=== PATIENT | female | born 1930 | race Asian ===

== ENCOUNTER 2018-07-06 18:18 | Inpatient (IN) | payer OTHER, MEDICAID ==
[~2018-07-06] VITALS: Ht 160 cm; Wt 51.3 kg
[2018-07-06 18:27] VITALS: BP 125/53
--- NOTE | 2018-07-06 18:37 | NUR ---
PT TAKEN BY WHEELCHAIR TO ER BED 07
--- NOTE | 2018-07-06 18:40 | NUR ---
PATIENT PRESENTS TO ED WITH ALOC DESCRIBED BY FAMILY (DAUGHTER AND GRANDDAUGHTER). PT FAMILY STATES SHE HAS BEEN ACTING MORE ALTERED THAN NORMAL AND HAS NOT BEEN EATING OR SLEEPING. DENIES N/V/D; SKIN IS PINK/WARM/DRY; AAOX4 WITH EVEN AND STEADY GAIT; LUNGS CLEAR BL; HR EVEN AND REGULAR; PT DENIES ANY FEVER, CP, SOB, OR COUGH AT THIS TIME; PATIENT STATES PAIN OF 0/10 AT THIS TIME; VSS; PATIENT POSITIONED FOR COMFORT; HOB ELEVATED; BEDRAILS UP X2; BED DOWN. ER MD MADE AWARE OF PT STATUS.
--- NOTE | 2018-07-06 19:31 | NUR ---
PT UNABLE TO VOID AT THIS TIME
--- NOTE | 2018-07-06 20:02 | NUR ---
Dr. Arizmendi evaluating patient at bedside.
--- NOTE | 2018-07-06 20:06 | NUR ---
PT TO CT VIA GURCANDACE IN STABLE CONDITION.
--- NOTE | 2018-07-06 20:06 | NUR ---
Patient taken to CT scan via gurney by WorkFlow[employer].
--- NOTE | 2018-07-06 20:21 | NUR ---
Patient returned from CT scan. RN re-evaluating patient at bedside.
--- NOTE | 2018-07-06 20:40 | NUR ---
# 14 FR Urinary catheter inserted utilizing sterile technique. Immediate return of 200 ml YELLOW urine noted. Urine sample collected and sent to lab. Pt tolerated procedure WELL.
--- NOTE | 2018-07-06 20:53 | NUR ---
LABS DRAWN AT BEDSIDE
[2018-07-06 21:19] LABS: APPEARANCE,URINE CLEAR (CLEAR); BILIRUBIN,URINE NEGATIVE (NEGATIVE); BLOOD, URINE TRACE-I (NEGATIVE); COLOR,URINE YELLOW (YELLOW); LEUKOCYTE ESTERASE ,URINE NEGATIVE (NEGATIVE); NITRITE, URINE NEGATIVE (NEGATIVE); PH,URINE 7.5 (5.0-9.0); UGLUCOSE NEGATIVE (NEGATIVE)
[2018-07-06 21:21] LABS: BASOPHILS % (AUTO) 0.7 % (0.0-2.0); EOSINOPHILS # (AUTO) 0.1 K/uL (0-0.4); EOSINOPHILS % (AUTO) 1.6 % (0.0-4.0); HEMATOCRIT 37.1 % (36-48); HEMOGLOBIN 12.7 g/dL (12.0-16.0); LYMPHOCYTES # (AUTO) 1.6 K/uL (2.5-16.5); MEAN CORPUSCULAR HEMOGLOBIN 35 pg (27-31); MEAN CORPUSCULAR HGB CONC 34 g/dL (33-37); MEAN CORPUSCULAR VOLUME 101.5 fL (80-94); MONOCYTES # (AUTO) 0.5 K/uL (0.8-1.0); MONOCYTES % (AUTO) 9.4 % (1.7-9.3); NEUTROPHILS % (AUTO) 57.3 % (42.2-75.2); PLATELET COUNT (AUTO) 145 K/uL (140-450); RED BLOOD CELL COUNT(AUTO) 3.66 MIL/uL (4.20-5.40); RED CELL DISTRIBUTION WIDTH 12.8 % (11.6-13.7); WHITE BLOOD COUNT (AUTO) 5.2 K/uL (4.8-10.8)
[2018-07-06 21:36] LABS: ANION GAP 9.5 (8-16); CARBON DIOXIDE 28.2 mmol/L (21-32); CHLORIDE 104 mmol/L (98-107); CREATININE 1.4 mg/dL (0.6-1.3); GLUCOSE 99 mg/dL (74-106); POTASSIUM 3.7 mmol/L (3.5-5.1); SODIUM SERUM 138 mmol/L (136-145); UREA NITROGEN, BLOOD 33 mg/dL (7-18)
[2018-07-06 21:42] LABS: ALBUMIN 4.2 g/dL (3.4-5.0); ASPARTATE AMINOTRANSFERASE 19 U/L (15-37); TOTAL BILIRUBIN 0.4 mg/dL (0.0-1.0)
[2018-07-06 21:45] LABS: RBC,URINE 0-5 (RARE) /HPF (0-5); WBC,URINE 0-5 (RARE) /HPF (0-5)
[2018-07-06] MEDS ORDERED: NACL 0.9% 500 ML IV ONE (22:00)
--- NOTE | 2018-07-06 22:01 | NUR ---
DR FULLER MADE AWARE OF LAB RESULTS.
[2018-07-06] MEDS ORDERED: MEMA10TA PO (22:14)
[2018-07-06] MEDS ORDERED: CALC-53 PO (22:14)
[2018-07-06] MEDS ORDERED: SERT100T PO (22:14)
[2018-07-06] MEDS ORDERED: PANT40EC28 PO (22:14)
[2018-07-06] MEDS ORDERED: AMLO5TAB4 PO (22:14)
[2018-07-06] MEDS ORDERED: ASPI-1173 PO (22:14)
[2018-07-06] MEDS ORDERED: ICOS1SGL PO (22:14)
[2018-07-06] MEDS ORDERED: SIMV20TA1 PO (22:14)
[2018-07-06] MEDS ORDERED: DONE10TA10 PO (22:14)
[2018-07-06] MEDS ORDERED: ZOLPIDEM 5 MG TAB PO PRN (22:55)
[2018-07-06] MEDS ORDERED: MORPHINE SULFATE 2 MG/ML SYR IVP PRN (22:55)
[2018-07-06] MEDS ORDERED: DOCUSATE SODIUM 100 MG GELCAP PO PRN (22:55)
[2018-07-06] MEDS ORDERED: LORazepam 2 MG/ML VIAL IM/IVP PRN (22:55)
[2018-07-06] MEDS ORDERED: ONDANSETRON 4 MG/2 ML VIAL IM/IVP PRN (22:55)
[2018-07-06] MEDS ORDERED: ACETAMINOPHEN 325 MG TAB PO PRN (22:55)
[2018-07-06] MEDS ORDERED: HYDROcodone/APAP 5/325 MG 1 TAB TAB PO PRN (22:55)
--- NOTE | 2018-07-06 23:07 | NUR ---
Patient will be admitted to care of DR. ESCALANTE. Admited to [facility]. Will go to room 121B. Belongings list completed. Report to RAFAELA ISAAC.
[2018-07-06 23:39] LABS: PROTHROMBIN TIME 9.7 secs (10.8-13.4)
[2018-07-06] MEDS: NACL 0.9% 1,000 ML IV SCH (23:44)
[2018-07-06 23:52] LABS: MAGNESIUM 2.5 mg/dL (1.8-2.4)
[2018-07-06 23:53] LABS: CHOL/HDL RATIO 2.6 (1-4.5); FREE T4 (FREE THYROXINE) 0.97 ng/dL (0.76-1.46); THYROID STIMULATING HORMONE 2.84 uIU/mL (0.34-3.74)
[2018-07-07] VITALS: BP 152/49
--- NOTE | 2018-07-07 | NUR ---
VITAL SIGNS WITHIN NORMAL LIMITS. PT STABLE, NO SIGNS OF DISTRESS NOTED AT THIS TIME. BED IN LOWEST POSITION, BED ALARM ON. CALL LIGHT WITHIN REACH, WILL CONTINUE TO MONITOR.
[2018-07-07] MEDS ORDERED: ZOLPIDEM 5 MG TAB ONE (00:39)
--- NOTE | 2018-07-07 00:40 | NUR ---
ADMINISTERED AMBIEN RIGHT NOW PER DR KERN'S ORDER. PULP HOUSE SUPERVISOR JULIO HAD TO OVERRIDE PYXIS IN ORDER TO GET MEDICATION BECAUSE PT NOT IN SYSTEM, PYXIS IS HAVING ISSUES WITH NEW PT'S AND ORDERS. 10MG ZOLPIDEM NOT AVAILABLE IN ONE PILL SO WE TOOK OUT TWO 5MG ZOLPIDEM PILLS.
[2018-07-07] MEDS ORDERED: ZOLPIDEM 10 MG TAB PO SCH (01:00)
--- NOTE | 2018-07-07 02:40 | NUR ---
PT PULLED OUT IV AND DOES NOT WANT ANOTHER ONE BECAUSE IT HURTS A LOT.
[2018-07-07 04:00] VITALS: BP 123/39
[2018-07-07] MEDS ORDERED: PANTOPRAZOLE 40 MG TABEC PO ONE (06:06)
[2018-07-07] MEDS: PANTOPRAZOLE 40 MG TABEC PO SCH (06:15)
--- NOTE | 2018-07-07 06:17 | NUR ---
ADMINISTERED SCHEDULED MEDICATION, PT TOLERATED WELL.
--- NOTE | 2018-07-07 07:07 | NUR ---
PATIENT HAS BEEN SCREENED AND CATEGORIZED HIGH NUTRITION RISK. PATIENT WILL BE SEEN WITHIN 1-2 DAYS OF ADMISSION. 07/06/18-07/07/18 IZABEL TYLER MS, RDN
--- NOTE | 2018-07-07 07:37 | NUR ---
ENDORSED PT TO DAY SHIFT RN FOR CONTINUITY OF CARE. PT IN STABLE CONDITION.
--- NOTE | 2018-07-07 07:40 | NUR ---
RECEIVED PT FROM EARTH SCIENCE TECHNICAL OFFICER NURSERAFAELA, PT IS AWAKE AND LYING ON THE BED WITH NO PERIPHERAL LINE IN PLACE. SAFETY PRECAUTION ENFORCED AND BED IN LOW POSITION, YELLOW GOWN, YELLOW BAND, YELLOW SOCK AND YELLOW SIGN IN PLACE. NO SIGN OF DISTRESS NOTED AND WILL CONTINUE TO MONITOR PT.
[2018-07-07 08:00] VITALS: BP 136/46
--- NOTE | 2018-07-07 08:00 | NUR ---
PT IS OFF THE UNIT AND WAS TAKEN BY SHAE FROM RADIOLOGY [facility]IA [facility] TO DO A RIB X-RAY PROCEDURE TO THE PT. PT IS AWAKE AND NO SIGN OF DISTRESS NOTED.
--- NOTE | 2018-07-07 08:46 | NUR ---
PT IS BACK TO ROOM FROM RADIOLOGY FROM A RIB X-RAY PROCEDURE. NO SIGN OF DISTRESS NOTED. WILL CONTINUE TO MONITOR PT.
--- NOTE | 2018-07-07 08:52 | NUR ---
PT DID NOT FINISH HER BREAKFAST AND JUST TOOK THE ENSURE, PT WAS ENCOURAGED TO EAT BUT SHE REFUSED AND SAID THAT SHE DOES NOT WANT ANYMORE. WILL MONITOR PT.
[2018-07-07] MEDS ORDERED: METOPROLOL 25 MG TAB PO SCH (09:00)
[2018-07-07] MEDS ORDERED: MEMANTINE 10 MG TAB PO SCH ×2 (09:00→21:00)
[2018-07-07] MEDS: LISINOPRIL 5 MG TAB PO SCH (09:00)
[2018-07-07] MEDS ORDERED: SERTRALINE 50 MG TAB PO SCH (09:00)
[2018-07-07] MEDS: ASPIRIN 81 MG TAB.CHEW PO SCH (09:35)
[2018-07-07] MEDS: amLODIPine 5 MG TAB PO SCH (09:36)
[2018-07-07] MEDS: DONEPEZIL 10 MG TAB PO SCH (09:36)
--- NOTE | 2018-07-07 10:15 | NUR ---
07/07/18 RD INITIAL ASSESSMENT COMPLETED PLEASE REFER TO NUTRITION ASSESSMENT UNDER CARE ACTIVITY FOR ESTIMATED NUTRITIONAL NEEDS. RD RECOMMENDATIONS: 1. RECOMMEND D/C RENAL DIET 2. RECOMMEND CHANGING DIET TO REGULAR 3. RECOMMEND STARTING ENSURE MAX PROTEIN WITH ALL MEALS TID. (THIS WILL PROVIDE 450 KCAL, 45 GM PROTEIN.) 4. RDN WILL F/U 2-3 DAYS; HIGH RISK. IZABEL TYLER, , RDN
--- NOTE | 2018-07-07 11:50 | NUR ---
PERIPHERAL WAS PLACED TO THE PT, ON THE RT FA G.22 AND NS WAS STARTED AT 50ML/HR, INFUSING WELL AND PATENT AND INTACT. WILL CONTINUE TO MONITOR PT.
[2018-07-07 12:00] VITALS: BP 120/35
--- NOTE | 2018-07-07 12:14 | NUR ---
ECHOCARDIOGRAM IS BEING DONE TO THE PT NOW. CALLED DR. LANDAVERDE AND INFORMED MD OF PT'S BP RESULT OF 120/33, MAP AT 52 AND PULSE AT 69, RESPIRATION IS 18 AND O2 SATURATION IS 96% AT O2 2L NC. PT IS AWAKE AND RESTING ON THE BED WITH NO SIGN OF DISTRESS NOTED. WILL CONTINUE TO MONITOR PT.
--- NOTE | 2018-07-07 12:49 | NUR ---
LATOYA FROM LAB CALLED AND REPORTED THE PT'S TROPONIN LEVEL OF 0.073, ACKNOWLEDGED AND WILL INFORM .
--- NOTE | 2018-07-07 12:55 | NUR ---
INFORMED DR. LANDAVERDE OF PT'S TROPONIN LEVEL OF 0/073, DR. LANDAVERDE SAID THAT HE WILL PLACE AN ORDER.
[2018-07-07] MEDS ORDERED: HYDROcodone/APAP 5/325 MG 1 TAB TAB PO SCH (13:00)
[2018-07-07] MEDS ORDERED: KETOROLAC 15 MG/ML VIAL IVP PRN (13:25)
--- NOTE | 2018-07-07 14:19 | NUR ---
SPOKE TO DR. LANDAVERDE REGARDING THE PT'S NAMENDA WHICH THE FAMILY HANDED ON WHICH IS A 28MG DOSE THAT THE PT IS TAKING AT HOME, INFORMED MD ALSO THAT PHARMACY RECOMMENDED TO GIVE THE SAME DOSE THE PT IS TAKING AT HOME SO NOT TO CREATE CONFUSION, DR. LANDAVERDE SAID TO JUST KEEP THE NAMENDA HE ORDERED FOR 10MG BID FOR THE PT, ACKNOWLEDGED AND WILL FACILITATE ORDER OF MD.
--- NOTE | 2018-07-07 15:00 | NUR ---
Certified Phlebotomy Technician Notes: I faxed patient's medical information and MD order for Physical Therapy to [facility] . I spoke to Telma at admissions to confirm that Patients Clinical packet was received and she confirmed that faxed information was received and will be review.
[2018-07-07 16:00] VITALS: BP 115/45
[2018-07-07] MEDS: NACL 0.9% 1,000 ML IV SCH (16:29)
[2018-07-07] MEDS ORDERED: SIMVASTATIN 20 MG TAB PO SCH (17:00)
[2018-07-07] MEDS ORDERED: ZOLPIDEM 5 MG TAB PO SCH (17:00)
--- NOTE | 2018-07-07 17:30 | NUR ---
Bender Machine Operator Notes: I received a call from Yuliya james at [facility] Stating that they will be accepting patient when she is ready for discharge from [facility]. I Thanked her for the information and ended the call. MD. Denny was made aware.
[2018-07-07] MEDS: ISOSORBIDE MONONITRATE 30 MG TABER PO SCH (18:00)
--- NOTE | 2018-07-07 19:35 | NUR ---
ENDORSED PT TO LIFTER NURSESUZANNE FOR CONTINUITY OF CARE. PT IS STABLE AT THIS TIME
--- NOTE | 2018-07-07 19:40 | NUR ---
REPORT RECEIVED FROM AM NURSE AT BEDSIDE. PT IN STABLE CONDITION. AAOX4. INTRODUCED SELF TO PT AND FAMILY. BOARD UPDATED. IV SITE R FA 20G RUNNING NS@50ML/HR PATENT AND INTACT. SKIN WARM, DRY, AND INTACT WITH NO OPEN WOUNDS. NO COMPLAINTS OF SOB. NO COMPLAINTS OF PAIN. BED LOCKED IN LOW POSITION. CALL GUEVARA WITHIN REACH. SAFETY PRECAUTIONS IN PLACE.
[2018-07-07 20:00] VITALS: BP 131/45
[2018-07-07] MEDS: MEMANTINE 10 MG TAB PO SCH (21:04)
--- NOTE | 2018-07-07 21:04 | NUR ---
NAMENDA GIVEN PO. HEPARIN GIVEN SUBQ. PT TOLERATED WELL.
[2018-07-07] MEDS: ZOLPIDEM 10 MG TAB PO SCH (21:36)
--- NOTE | 2018-07-07 21:36 | NUR ---
AMBIEN GIVEN PO. PT TOLERATED WELL.
--- NOTE | 2018-07-07 23:45 | NUR ---
PT ATTEMPTED TO GET UP MULTIPLE TIMES. BED ALARM SET. NO S/S OF DISTRESS. WILL CONTINUE TO MONITOR.
[2018-07-08] VITALS: BP 143/45
--- NOTE | 2018-07-08 02:15 | NUR ---
PT SLEEPING COMFORTABLY IN BED. NO S/S OF DISTRESS NOTED. NO COMPLAINTS OF PAIN OR SOB. WILL CONTINUE TO MONITOR.
[2018-07-08 04:00] VITALS: BP 131/51
[2018-07-08] MEDS: PANTOPRAZOLE 40 MG TABEC PO SCH (05:44)
--- NOTE | 2018-07-08 05:44 | NUR ---
PROTONIX GIVEN PO. PT TOLERATED WELL.
[2018-07-08] MEDS: NACL 0.9% 1,000 ML IV SCH (05:51)
--- NOTE | 2018-07-08 07:20 | NUR ---
REPORT GIVEN TO AM NURSE AT BEDSIDE. PT IN STABLE CONDITION.
--- NOTE | 2018-07-08 07:25 | NUR ---
RECEIVED PT FROM MANAGER OF DEVELOPMENT NURSESUZANNE, PT ID AWAKE LYING ON THE BED, NO SOB, RESPIRATION EVEN, PT HAS AN IV LINE ON THE RIGHT FA G. 22 NS AT 50 ML/HR, INTACT, INFUSING, SIDE RAILS ARE UP, AND CALL LIGHT WITHIN REACH. NO SIGN OF DISTRESS NOTED AND WILL CONTINUE TO MONITOR PT.
[2018-07-08 08:00] VITALS: BP 127/45
[2018-07-08 08:08] LABS: T4 (THYROXINE) 8.3 ug/dL (4.5-12.0)
[2018-07-08 08:19] LABS: BASOPHILS % (AUTO) 0.5 % (0.0-2.0); EOSINOPHILS # (AUTO) 0.1 K/uL (0-0.4); EOSINOPHILS % (AUTO) 2.4 % (0.0-4.0); HEMATOCRIT 32.7 % (36-48); HEMOGLOBIN 11.2 g/dL (12.0-16.0); LYMPHOCYTES # (AUTO) 1.5 K/uL (2.5-16.5); LYMPHOCYTES % (AUTO) 36.4 % (20.5-51.1); MEAN CORPUSCULAR HEMOGLOBIN 35 pg (27-31); MEAN CORPUSCULAR HGB CONC 34 g/dL (33-37); MEAN CORPUSCULAR VOLUME 100.3 fL (80-94); MONOCYTES # (AUTO) 0.4 K/uL (0.8-1.0); NEUTROPHILS # (AUTO) 2.1 K/uL (1.8-7.7); NEUTROPHILS % (AUTO) 50.7 % (42.2-75.2); PLATELET COUNT (AUTO) 131 K/uL (140-450); RED BLOOD CELL COUNT(AUTO) 3.26 MIL/uL (4.20-5.40); RED CELL DISTRIBUTION WIDTH 12.6 % (11.6-13.7); WHITE BLOOD COUNT (AUTO) 4.2 K/uL (4.8-10.8)
[2018-07-08 08:33] LABS: CARBON DIOXIDE 27.6 mmol/L (21-32); CHLORIDE 107 mmol/L (98-107); CREATININE 1.1 mg/dL (0.6-1.3); GLUCOSE 99 mg/dL (74-106); POTASSIUM 3.6 mmol/L (3.5-5.1); SODIUM SERUM 140 mmol/L (136-145); UREA NITROGEN, BLOOD 28 mg/dL (7-18)
[2018-07-08 08:36] LABS: MAGNESIUM 2.3 mg/dL (1.8-2.4); PHOSPHORUS 3.4 mg/dL (2.5-4.9)
--- NOTE | 2018-07-08 09:07 | NUR ---
SPOKE TO DR. LANDAVERDE AND INFORMED MD OF THE PT'S BP RESULT OF 131/45, PULSE IS 57N AND MAP IS 73, DR. LANDAVERDE ORDERED TO GIVE THE NORVASC AND ZESTRIL TO PT. ACKNOWLEDGED AND WILL CARRY OUT ORDER.
[2018-07-08] MEDS: DONEPEZIL 10 MG TAB PO SCH (09:10)
[2018-07-08] MEDS: amLODIPine 5 MG TAB PO SCH (09:11)
[2018-07-08] MEDS: ASPIRIN 81 MG TAB.CHEW PO SCH (09:11)
[2018-07-08] MEDS: DULoxetine 30 MG CAPDR PO SCH (09:11)
[2018-07-08] MEDS: LISINOPRIL 5 MG TAB PO SCH (09:12)
[2018-07-08] MEDS: MEMANTINE 10 MG TAB PO SCH ×2 (09:16→20:32)
[2018-07-08 12:00] VITALS: BP 140/44
--- NOTE | 2018-07-08 12:30 | NUR ---
PT IS AWAKE AND VITAL SIGNS WERE TAKEN AND RESULTS ARE WITHIN NORMAL LIMITS, NO SIGN OF DISTRESS NOTES AND RESPIRATION EVEN. WILL MONITOR PT
--- NOTE | 2018-07-08 14:30 | NUR ---
PT IS SLEEPING AT THIS TIME.
[2018-07-08 16:00] VITALS: BP 117/44
--- NOTE | 2018-07-08 17:30 | NUR ---
PT IS AWAKE WITH DAUGHTER AND GRANDCHILD ON THE BEDSIDE, AND PT IS TALKING TO FAMILY. NO SIGN OF DISTRESS NOTED.
[2018-07-08] MEDS: ISOSORBIDE MONONITRATE 30 MG TABER PO SCH (18:00)
--- NOTE | 2018-07-08 18:38 | NUR ---
SPOKE TO DR. ELIZABETH AND INFORMED MD THAT IMDUR WAS HOLD PER PARAMETER AND ACKNOWLEDGED.
--- NOTE | 2018-07-08 18:45 | NUR ---
PT IS AWAKE AND AMBULATED TO THE BATHROOM WITH THE ASSISTANCE OF THE FAMILY, PT WAS SEEN HAVING ORAL CARE AT THIS TIME. NO SIGN OF DISTRESS NOTED. WILL CONTINUE TO MONITOR PT.
--- NOTE | 2018-07-08 19:10 | NUR ---
RECEIVED BEDSIDE REPORT FROM DAY SHIFT NURSE. PT SITTING AT SIDE OF BED FAMILY MEMBER AT BEDSIDE. DENIES ANY PAIN. NO SIGNS OF SOB PT IS CURRENTLY ON ROOM AIR. IV ON R FOREARM 22 G 40ML/HR INFUSING NS. REVIEWED PLAN OF CARE WITH PT. ALL SAFETY MEASURES IN PLACE. CALL LIGHT IS WITHIN REACH. WILL CONTINUE TO MONITOR.
[2018-07-08 20:00] VITALS: BP 116/43
--- NOTE | 2018-07-08 20:22 | NUR ---
DUE MEDICATIONS GIVEN. PT TOLERATED WELL. ALL SAFETY MEASURES IN PLACE. DAUGHTER AT BEDSIDE. CALL LIGHT IS WITHIN REACH. WILL CONTINUE TO MONITOR.
[2018-07-08] MEDS: ZOLPIDEM 10 MG TAB PO SCH (20:32)
[2018-07-09] VITALS: BP 135/46
--- NOTE | 2018-07-09 | NUR ---
VITAL SIGNS ARE WITHIN NORMAL LIMITS. PT DENIES ANY PAIN AT THIS TIME. CALL LIGHT WITHIN REACH. WILL CONTINUE TO MONITOR
--- NOTE | 2018-07-09 01:26 | NUR ---
ASSISTED PT TO RESTROOM. NO SIGNS OF DISTRESS NOTED. REORIENTED PT TO USE CALL LIGHT. ALL SAFETY MEASURES IN PLACE. BED ALARM ON AND BED ON LOWEST POSITION WITH 3 SIDE RAILS UP. WILL CONTINUE TO MONITOR.
--- NOTE | 2018-07-09 03:16 | NUR ---
PT SLEEPING IN BED. NO SIGNS OF DISTRESS NOTED AT THIS TIME.
[2018-07-09 04:00] VITALS: BP 132/46
[2018-07-09] MEDS: NACL 0.9% 1,000 ML IV SCH (04:04)
[2018-07-09] MEDS: PANTOPRAZOLE 40 MG TABEC PO SCH (05:43)
--- NOTE | 2018-07-09 05:43 | NUR ---
DUE MEDICATION GIVEN PT TOLERATED WELL. ALL SAFETY MEASURES IN PLACE. CALL LIGHT WITHIN REACH. WILL CONTINUE TO MONITOR.
--- NOTE | 2018-07-09 07:20 | NUR ---
PT REPORT RECEIVED FROM TRANSPORTATION DESIGN ENGINEER NURSE AT BEDSIDE. PT IS ALERT AND AWAKE, NO S/S OF DISTRESS NOTED AT THIS TIME. PT IS CURRENTLY ON ROOM AIR. PT HAS A R FOREARM IV, 22 GAUGE, RUNNING NS AT 40 ML/HR. IV IS PATENT AND INTACT. CALL LIGHT WITHIN REACH, BED IN LOW POSITION. WILL CONTINUE TO MONITOR.
--- NOTE | 2018-07-09 07:21 | NUR ---
ENDORSED PT TO DAY SHIFT NURSE. PT IN STABLE CONDITION. SAFETY MEASURES IN PLACE.
[2018-07-09 07:48] LABS: BASOPHILS % (AUTO) 0.9 % (0.0-2.0); EOSINOPHILS # (AUTO) 0.2 K/uL (0-0.4); HEMATOCRIT 31.8 % (36-48); LYMPHOCYTES # (AUTO) 1.5 K/uL (2.5-16.5); LYMPHOCYTES % (AUTO) 37.2 % (20.5-51.1); MEAN CORPUSCULAR HEMOGLOBIN 35 pg (27-31); MEAN CORPUSCULAR HGB CONC 35 g/dL (33-37); MEAN CORPUSCULAR VOLUME 100.9 fL (80-94); MONOCYTES # (AUTO) 0.4 K/uL (0.8-1.0); NEUTROPHILS # (AUTO) 1.9 K/uL (1.8-7.7); NEUTROPHILS % (AUTO) 47.9 % (42.2-75.2); PLATELET COUNT (AUTO) 127 K/uL (140-450); RED BLOOD CELL COUNT(AUTO) 3.15 MIL/uL (4.20-5.40); RED CELL DISTRIBUTION WIDTH 12.6 % (11.6-13.7)
[2018-07-09 08:00] VITALS: BP 111/42
[2018-07-09 08:36] LABS: ANION GAP 10.2 (8-16); CARBON DIOXIDE 25.5 mmol/L (21-32); CHLORIDE 111 mmol/L (98-107); CREATININE 1.1 mg/dL (0.6-1.3); GLUCOSE 96 mg/dL (74-106); POTASSIUM 3.7 mmol/L (3.5-5.1); SODIUM SERUM 143 mmol/L (136-145); UREA NITROGEN, BLOOD 23 mg/dL (7-18)
[2018-07-09] MEDS ORDERED: LISI-424 PO (08:41)
[2018-07-09] MEDS ORDERED: ISOS30TE35 PO (08:41)
[2018-07-09] MEDS ORDERED: MEMA10TA PO (08:41)
[2018-07-09] MEDS: DONEPEZIL 10 MG TAB PO SCH (09:40)
[2018-07-09] MEDS: DULoxetine 30 MG CAPDR PO SCH (09:40)
[2018-07-09] MEDS: amLODIPine 5 MG TAB PO SCH (09:41)
[2018-07-09] MEDS: LISINOPRIL 5 MG TAB PO SCH (09:41)
[2018-07-09] MEDS: MEMANTINE 10 MG TAB PO SCH (09:42)
--- NOTE | 2018-07-09 10:30 | NUR ---
PT DOING PHYSICAL THERAPY AT THIS TIME. NO S/S OF DISTRESS NOTED. DAUGHTER PRESENT.
--- NOTE | 2018-07-09 11:06 | NUR ---
Channel Process Plant Operator Note: Fransico Hollis from [facility] , patient may go to room 28B after 3pm today, accepting physician is , nurse outreach case manager Margaret and Dr. Hansen made aware.
[2018-07-09 12:00] VITALS: BP 110/45
--- NOTE | 2018-07-09 12:08 | NUR ---
SPOKE TO THE DAUGHTER HANSEL, SHE SAID SHE WILL SUPERVISOR GREEN END DEPARTMENT HER MOM AFTER 3PM.
--- NOTE | 2018-07-09 12:08 | NUR ---
SPOKE WITH SCOOTER ISAACFINANCIAL ANALYST INTERN NURSE. SHE IS AWARE OF PATIENT TO GO TO SNF, [facility]. SHE SAID THE DAUGHTER, HANSEL WILL PROVIDE TRANSPORTATION TO [facility].
[2018-07-09] MEDS ORDERED: PNEUMOCOCCAL VACCINE 23 MCG/0.5 ML VIAL IMVAC SCH (12:30)
--- NOTE | 2018-07-09 15:40 | NUR ---
PT DISCHARGED TO [facility]. PT LEFT IN STABLE CONDITION, ACCOMPANIED BY HER DAUGHTER. IV SITE DC'D, WRIST BANDS REMOVED. PT RECEIVED THE PNEUMO VACCINE UPON DISCHARGE.
== END 2018-07-09 15:30 | DRG 280 ==
LOC: MED 18:18 → MTU 22:18
PROVIDERS: ADMIT General Practice; ATTEND General Practice
PROC: 3E0234Z Introduction of Serum, Toxoid and Vaccine into Muscle, Percutaneous Approach (ICD-10-PCS; principal; 2018-07-09)
DX: I21.A1 Myocardial infarction type 2 (principal); G93.41 Metabolic encephalopathy; N17.0 Acute kidney failure with tubular necrosis; E43 Unspecified severe protein-calorie malnutrition; Q25.46 Tortuous aortic arch; E86.0 Dehydration; I24.9 Acute ischemic heart disease, unspecified; G30.9 Alzheimer's disease, unspecified; K21.9 Gastro-esophageal reflux disease without esophagitis; F02.80 Dementia in other diseases classified elsewhere, unspecified severity, without behavioral disturbance, psychotic disturbance, mood disturbance, and anxiety; E83.41 Hypermagnesemia; D69.6 Thrombocytopenia, unspecified; G47.00 Insomnia, unspecified; R62.7 Adult failure to thrive; F32.9 Major depressive disorder, single episode, unspecified; I08.1 Rheumatic disorders of both mitral and tricuspid valves; M41.84 Other forms of scoliosis, thoracic region; Z23 Encounter for immunization
CPT/HCPCS: 36415; 70450; 71045; 71100; 80048; 80053; 81001; 82140; 82150; 82550; 83036; 83690; 83735; 83880; 84100; 84134; 84436; 84439; 84443; 84484; 85025; 85610; 85730; 87081; 90732; 93005; 97110; 97116; 97530; 99285; C1758; J1644; J7030

== ENCOUNTER 2018-10-16 16:04 | Emergency (ER) | payer OTHER, MEDICAID ==
[~2018-10-16] VITALS: Ht 160 cm; Wt 44.5 kg
[~2018-10-16 16:04] MED LIST: AMLO5TAB6 PO; ASPI-1173 PO; CALC-53 PO; DONE10TA10 PO; ICOS1SGL PO; ISOS30TE68 PO; LISI-424 PO; MEMA10TA PO; PANT40EC28 PO; SERT100T PO; SIMV20TA1 PO
[2018-10-16 16:09] VITALS: BP 126/75
--- NOTE | 2018-10-16 16:25 | NUR ---
PT TO ER BED 2
--- NOTE | 2018-10-16 16:45 | NUR ---
bib DAUGHTER with c/o allergic reaction x 1400 today. Unsure what is the cause. Family denies any allergies. REDNESS & SWELLIN TO PERIORBITAL AREA BOTH EYES . Patient denies any sob or difficultly breathing. Clear speech with full sentences. hx--dementia, hypertension, hyperlipidemia rx--quetiapine, zolpidem tartrate, simvastatin, pantoprazole, olopatadine hcl drops, amlopidine besylate, memantine hcl, mirtazapine
[2018-10-16] MEDS ORDERED: FAMOTIDINE 20 MG TAB PO ONE (16:55)
[2018-10-16] MEDS ORDERED: LORATADINE 10 MG TAB PO ONE (16:55)
[2018-10-16 17:06] VITALS: BP 134/52
--- NOTE | 2018-10-16 17:06 | NUR ---
Note nunuone in EDM - 10/16/18 at 1706 by MED1 Patient discharged with v/s stable. Written and verbal after care instructions given and explained. Patient alert, oriented and verbalized understanding of instructions. Wheel Chair Assisted with to car. All questions addressed prior to discharge. ID band removed. Patient advised to follow up with PMD. Rx of PEPCID, EPIPEN & CLARITIN given. Patient educated on indication of medication including possible reaction and side effects. Opportunity to ask questions provided and answered.
== END 2018-10-16 17:06 | disposition home or self-care (01) ==
LOC: MED 16:04
DX: T78.40XA Allergy, unspecified, initial encounter (principal); F03.90 Unspecified dementia, unspecified severity, without behavioral disturbance, psychotic disturbance, mood disturbance, and anxiety; I10 Essential (primary) hypertension; Z79.82 Long term (current) use of aspirin; Z79.899 Other long term (current) drug therapy; X58.XXXA Exposure to other specified factors, initial encounter
CPT/HCPCS: 99283

== ENCOUNTER 2019-01-12 12:27 | Inpatient (IN) | payer OTHER, MEDICAID ==
[~2019-01-12] VITALS: Ht 160 cm; Wt 50.8 kg
[2019-01-12 12:27] VITALS: BP 156/48
--- NOTE | 2019-01-12 12:40 | NUR ---
PT BIB FAMILY C/O MEC FALL 2 DAYS AGO HIT LT SIDE OF HEAD, REPORTS ALOC STARTING TODAY, HAND ATMOSPHERIC DRIER TENDER WEAK/UNEQUAL, UNSTEADY GAIT, PUPILS PINPOINT BUT REACTIVE. MEDHX:DEMENTIA, HIGH CHOL, HTN RX:PT/FAMILY CAN NOT RECALL HOME MEDS/DOSE AT THIS TIME
--- NOTE | 2019-01-12 12:41 | NUR ---
Called code brain.
[2019-01-12] MEDS ORDERED: ONDANSETRON 4 MG/2 ML VIAL IVP ONE (12:45)
[2019-01-12] MEDS ORDERED: HYDROcodone/APAP 5/325 MG 1 TAB TAB PO PRN (14:10)
[2019-01-12] MEDS ORDERED: ONDANSETRON 4 MG/2 ML VIAL IM/IVP PRN (14:10)
[2019-01-12] MEDS ORDERED: MORPHINE SULFATE 2 MG/ML SYR IVP PRN (14:10)
[2019-01-12] MEDS ORDERED: DOCUSATE SODIUM 100 MG GELCAP PO PRN (14:10)
[2019-01-12] MEDS ORDERED: ACETAMINOPHEN 325 MG TAB PO PRN (14:10)
[2019-01-12 14:21] LABS: BASOPHILS % (AUTO) 0.2 % (0.0-2.0); EOSINOPHILS # (AUTO) 0.1 K/uL (0-0.4); EOSINOPHILS % (AUTO) 1.6 % (0.0-4.0); HEMATOCRIT 34.8 % (36-48); HEMOGLOBIN 11.9 g/dL (12.0-16.0); LYMPHOCYTES # (AUTO) 1.5 K/uL (2.5-16.5); LYMPHOCYTES % (AUTO) 20.9 % (20.5-51.1); MEAN CORPUSCULAR HEMOGLOBIN 35 pg (27-31); MEAN CORPUSCULAR HGB CONC 34 g/dL (33-37); MEAN CORPUSCULAR VOLUME 101.9 fL (80-94); MONOCYTES # (AUTO) 0.7 K/uL (0.8-1.0); MONOCYTES % (AUTO) 9.8 % (1.7-9.3); NEUTROPHILS # (AUTO) 4.7 K/uL (1.8-7.7); NEUTROPHILS % (AUTO) 67.5 % (42.2-75.2); PLATELET COUNT (AUTO) 136 K/uL (140-450); RED BLOOD CELL COUNT(AUTO) 3.41 MIL/uL (4.20-5.40); RED CELL DISTRIBUTION WIDTH 13.1 % (11.6-13.7)
[2019-01-12 14:30] LABS: ANION GAP 12.6 (8-16); CARBON DIOXIDE 26.6 mmol/L (21-32); CHLORIDE 105 mmol/L (98-107); CREATININE 1.1 mg/dL (0.6-1.3); GLUCOSE 103 mg/dL (74-106); POTASSIUM 4.2 mmol/L (3.5-5.1); SODIUM SERUM 140 mmol/L (136-145); UREA NITROGEN, BLOOD 25 mg/dL (7-18)
[2019-01-12 14:37] LABS: ALBUMIN 3.5 g/dL (3.4-5.0); ASPARTATE AMINOTRANSFERASE 21 U/L (15-37); LIPASE 298 U/L (73-393); TOTAL BILIRUBIN 0.3 mg/dL (0.0-1.0)
[2019-01-12 14:39] LABS: PROTHROMBIN TIME 9.6 secs (10.8-13.4)
[2019-01-12] MEDS ORDERED: MEDICATION REC. PHARMACY CONS. 1 EA MISC MC PRN (15:05)
[2019-01-12 15:06] LABS: AMYLASE 91 U/L (25-115)
--- NOTE | 2019-01-12 15:20 | NUR ---
RECEIVED BEDSIDE REPORT FROM ER NURSE AUNDREA. PT STABLE, AWAKE, AND ALERT AND ORIENTED X2. NO SIGNS OF DISTRESS NOTED. NO REDNESS, SWELLING, OR INFLAMMATION NOTED ON IV SITE. FAMILY AT THE BEDSIDE. BED IN LOWEST POSITION, BED ALARM ON. SAFETY MEASURES IN PLACE. PLAN OF CARE REVIEWED.
--- NOTE | 2019-01-12 15:20 | NUR ---
Admited to TELE VIA [facility]/ [facility]. Will go to room 107A. Belongings list completed. Report to PER ELIZABETH.
[2019-01-12 15:37] LABS: MAGNESIUM 2.3 mg/dL (1.8-2.4); PHOSPHORUS 3.5 mg/dL (2.5-4.9); THYROID STIMULATING HORMONE 1.7 uIU/mL (0.34-3.74)
[2019-01-12 16:00] VITALS: BP 149/49
[2019-01-12] MEDS: NACL 0.9% 1,000 ML IV SCH (16:09)
[2019-01-12 16:17] LABS: APPEARANCE,URINE CLEAR (CLEAR); BILIRUBIN,URINE NEGATIVE (NEGATIVE); BLOOD, URINE NEGATIVE (NEGATIVE); COLOR,URINE YELLOW (YELLOW); LEUKOCYTE ESTERASE ,URINE NEGATIVE (NEGATIVE); NITRITE, URINE NEGATIVE (NEGATIVE); UGLUCOSE NEGATIVE (NEGATIVE)
[2019-01-12] MEDS ORDERED: ZOLP10TA1 PO (16:26)
[2019-01-12] MEDS ORDERED: NITROGLYCERIN 0.4 MG TAB SL ONE (16:30)
--- NOTE | 2019-01-12 17:43 | NUR ---
FAMILY AT THE BEDSIDE. NO OTHER NEEDS AT THIS TIME.
--- NOTE | 2019-01-12 17:55 | NUR ---
RECEIVED CALL FROM PT'S GRANDSON JOSÉ REGARDING HOME MEDS. MED RECON UPDATED, MADE DR GAMBOA AWARE.
[2019-01-12 18:00] VITALS: BP 115/40
--- NOTE | 2019-01-12 18:00 | NUR ---
ORTHOSTATIC TAKEN PER MD ORDER.
[2019-01-12 18:05] VITALS: BP 103/34
[2019-01-12 18:10] VITALS: BP 111/38
[2019-01-12] MEDS ORDERED: COROS OP (19:13)
[2019-01-12] MEDS ORDERED: HYDR-3298 PO (19:13)
[2019-01-12] MEDS ORDERED: MEL10 PO (19:13)
--- NOTE | 2019-01-12 19:15 | NUR ---
ENDORSED PT TO PONCHO REY FOR CONTINUITY OF CARE. PT STABLE, FAMILY AT THE BEDSIDE.
--- NOTE | 2019-01-12 19:16 | NUR ---
RECEIVED REPORT FROM AM NURSE. PATIENT LYING DOWN IN BED COMFORTABLY. FAMILY MEMBERS AT BEDSIDE FOR TRANSLATION. NO DISTRESS NOTED. RESPIRATIONS EVEN, UNLABORED, ON ROOM AIR. DENIES ANY PAIN, DENIES CHEST PAIN. AAOX4, CALM, COOPERATIVE, SKIN COLOR APPROPRIATE TO ETHNICITY, WARM TO TOUCH. SKIN INTACT. LEFT SMALL LEFT SIDE CHEST BRUISE S/P FALL. IV SITE INTACT, PATENT, AND INFUSING IVF PER MD ORDERS. ABDOMEN SOFT, NON-DISTENDED. REVIEWED PLAN OF CARE WITH PATIENT. PATIENT VERBALIZED UNDERSTANDING. SAFETY MEASURES IN PLACE, CALL LIGHT WITHIN REACH. WILL CONTINUE TO MONITOR.
[2019-01-12 20:00] VITALS: BP 125/43
[2019-01-12] MEDS ORDERED: NITROGLYCERIN 0.4 MG TAB SL SCH (20:00)
[2019-01-12] MEDS: MEMANTINE 10 MG TAB PO SCH (20:34)
[2019-01-12] MEDS: MELATONIN 3 MG TAB PO PRN (20:34)
--- NOTE | 2019-01-12 20:44 | NUR ---
PATIENT WANTS TO SLEEP, REQUESTS SLEEP MEDICATION. MELATONIN GIVEN AND OTHER SCHEDULED MEDICATIONS DUE AT THIS TIME GIVEN. NO DISTRESS NOTED. DENIES ANY CHEST PAIN. NITROGLYCERIN SUBLINGUAL NOT GIVEN AT THIS TIME. SAFETY MEASURES IN PLACE, CALL LIGHT WITHIN REACH. WILL CONTINUE TO MONITOR.
--- NOTE | 2019-01-12 22:25 | NUR ---
PATIENT BACK FROM CT SCAN. NO DISTRESS NOTED. WILL CONTINUE TO MONITOR.
[2019-01-13] VITALS: BP 121/42
[2019-01-13] MEDS ORDERED: traZODone 50 MG TAB PO SCH (01:00)
--- NOTE | 2019-01-13 01:10 | NUR ---
PATIENT COMPLAINS OF INSOMNIA, NOTIFIED MD. NEW ORDER OF TRAZODONE GIVEN PER MD ORDERS. WILL CONTINUE TO MONITOR.
--- NOTE | 2019-01-13 02:50 | NUR ---
PATIENT LYING DOWN IN BED SLEEPING, AROUSBLE BY VOICE. CONDITION UNCHANGED. WILL CONTINUE TO MONITOR.
--- NOTE | 2019-01-13 03:30 | NUR ---
ASSISTED PATIENT TO AMBULATE TO BATHROOM AND BACK TO BED. WILL CONTINUE TO MONITOR.
[2019-01-13 04:00] VITALS: BP 110/42
--- NOTE | 2019-01-13 04:30 | NUR ---
PATIENT LYING DOWN IN BED SLEEPING, AROUSABLE BY VOICE. CONDITION UNCHANGED. WILL CONTINUE TO MONITOR.
[2019-01-13] MEDS: NACL 0.9% 1,000 ML IV SCH ×2 (05:59→23:30)
[2019-01-13] MEDS: PANTOPRAZOLE 40 MG TABEC PO SCH (05:59)
--- NOTE | 2019-01-13 06:00 | NUR ---
PATIENT LYING DOWN IN BED SLEEPING, AROUSABLE BY VOICE. NO DISTRESS NOTED. SCHEDULED MEDICATIONS DUE GIVEN. WILL CONTINUE TO MONITOR.
--- NOTE | 2019-01-13 07:23 | NUR ---
GAVE REPORT TO AM NURSE FOR CONTINUITY FOR CARE. PATIENT IN STABLE CONDITION.
[2019-01-13 08:00] VITALS: BP 130/59
--- NOTE | 2019-01-13 08:00 | NUR ---
RECEIVED REPORT FROM BOX OFFICE AGENT CANDIDO ISAAC FOR CONTINUITY OF CARE. PATIENT AWAKE A/OX3 WITH PERIODS OF CONFUSION. SERBIAN SPEAKING BUT ABLE TO MAKE NEEDS KNOWN. IV SITE RIGHT HAND GAUGE 22 INTACT AND PATENT. IVF INFUSING WELL. PLAN OF CARE DISCUSSED WITH THE PATIENT SAFETY ENFORCED ,VITALS STABLE WILL CONTINUE TO MONITOR.
[2019-01-13 08:22] LABS: T4 (THYROXINE) 7.5 ug/dL (4.5-12.0)
[2019-01-13 08:40] LABS: MAGNESIUM 2.1 mg/dL (1.8-2.4); PHOSPHORUS 3.2 mg/dL (2.5-4.9)
[2019-01-13 08:45] LABS: ANION GAP 12.5 (8-16); CARBON DIOXIDE 25.5 mmol/L (21-32); CHLORIDE 108 mmol/L (98-107); CREATININE 1.1 mg/dL (0.6-1.3); GLUCOSE 142 mg/dL (74-106); SODIUM SERUM 142 mmol/L (136-145); UREA NITROGEN, BLOOD 19 mg/dL (7-18)
[2019-01-13 08:47] LABS: CHOL/HDL RATIO 3.1 (1-4.5)
[2019-01-13 08:53] LABS: BASOPHILS % (AUTO) 0.4 % (0.0-2.0); EOSINOPHILS # (AUTO) 0.1 K/uL (0-0.4); EOSINOPHILS % (AUTO) 2.7 % (0.0-4.0); HEMATOCRIT 31.5 % (36-48); LYMPHOCYTES # (AUTO) 1.2 K/uL (2.5-16.5); MEAN CORPUSCULAR HEMOGLOBIN 35 pg (27-31); MEAN CORPUSCULAR HGB CONC 35 g/dL (33-37); MEAN CORPUSCULAR VOLUME 101.8 fL (80-94); MONOCYTES # (AUTO) 0.5 K/uL (0.8-1.0); MONOCYTES % (AUTO) 9.4 % (1.7-9.3); NEUTROPHILS # (AUTO) 3.1 K/uL (1.8-7.7); NEUTROPHILS % (AUTO) 63.5 % (42.2-75.2); PLATELET COUNT (AUTO) 122 K/uL (140-450); RED BLOOD CELL COUNT(AUTO) 3.09 MIL/uL (4.20-5.40); RED CELL DISTRIBUTION WIDTH 12.9 % (11.6-13.7); WHITE BLOOD COUNT (AUTO) 4.9 K/uL (4.8-10.8)
[2019-01-13] MEDS: SERTRALINE 50 MG TAB PO SCH (09:57)
[2019-01-13] MEDS: MEMANTINE 10 MG TAB PO SCH ×2 (09:57→20:24)
[2019-01-13] MEDS: DONEPEZIL 10 MG TAB PO SCH (09:57)
--- NOTE | 2019-01-13 10:00 | NUR ---
DUE MEDS GIVEN TOLERATED WELL ASSIST PATIENT TO GO TO BATHROOM AND WITH MORNING CARE ,SAFETY ENFORCED VERBALIZED UNDERSTANDING
[2019-01-13 13:40] VITALS: BP 135/42
--- NOTE | 2019-01-13 13:40 | NUR ---
RECEIVED REPORT FROM THE PARACHUTE FOLDER NURSE. PT IS AWAKE AND ORIENTED X3, WITH SOME FORGETFULNESS. DAUGHTER AT BEDSIDE. PT IS PASHTO SPEAKING. V/S WITHIN NORMAL RANGE. DENIES PAIN. IV ON L HAND 22G NS AT 60ML/HR. PT IS AMBULATORY WITH ASSIST. BIT UNSTEADY ON FEET. S/P FALL AT HOME. C/O SOME DISCOMFORT ON L RIB. XRAY STILL PENDING. SORENESS ON L SIDE OF THE HEAD BEHIND EAR. CT HEAD NEGATIVE. NO OTHER COMPLAINTS. CARDIOLOGY CONSULT PENDING. WOULD LIKE TO BE D/C SOON, WOULD LIKE TO GO HOME. WILL CONTINUE TO MONITOR PT.
[2019-01-13 16:00] VITALS: BP 114/36
--- NOTE | 2019-01-13 16:30 | NUR ---
DR MITCHELL HERE TO SEE PT. ORDERED ECHO. PT HAS A MURMUR.
--- NOTE | 2019-01-13 17:00 | NUR ---
MOVED PT TO [facility]. PT ALL SETTLED IN. WILL CONTINUE TO MONITOR PT.
--- NOTE | 2019-01-13 19:35 | NUR ---
ENDORSED PT TO THE DEVELOPMENT TECHNOLOGIST NURSE. PT IS IN STABLE CONDITION
--- NOTE | 2019-01-13 19:36 | NUR ---
RECEIVED REPORT FROM DAY SHIFT NURSE SAMANTHA-RN AT BEDSIDE. PT RESTING IN BED WITH FAMILY AT BEDSIDE. PT AOX3-FORGETFUL, SPEAKS CZECH, ON ROOM AIR WITH RIGHT HAND #22G RUNNING NS @60ML/HR. DISCUSSED PLAN OF CARE AND PT VERBALIZED UNDERSTANDING. NO S/S OF RESPIRATORY DISTRESS OR DISCOMFORT NOTED AT THIS TIME. BED IN LOWEST POSITION, BED BREAKS ON, BOTH SIDE RAILS UP AND FALL PRECAUTIONS IN PLACE. BEDSIDE TABLE AND CALL LIGHT ARE WITHIN REACH. WILL CONTINUE TO MONITOR.
[2019-01-13 20:00] VITALS: BP 110/35
--- NOTE | 2019-01-13 20:00 | NUR ---
VITAL SIGNS TAKEN AND TOLERATED WELL. NO S/S OF RESPIRATORY DISTRESS OR DISCOMFORT NOTED AT THIS TIME. WILL CONTINUE TO MONITOR.
[2019-01-13] MEDS: MELATONIN 3 MG TAB PO PRN (20:24)
--- NOTE | 2019-01-13 20:24 | NUR ---
SCHEDULED MEDICATION NAMENDA GIVEN AND TOLERATED WELL. SLEEPING AID REQUESTED AND MELATONIN GIVEN- PT TOLERATED WELL. NO S/S OF RESPIRATORY DISTRESS OR DISCOMFORT NOTED AT THIS TIME. WILL CONTINUE TO MONITOR.
--- NOTE | 2019-01-13 21:46 | NUR ---
SCHEDULED MEDICATION DULCOLAX GIVEN AND TOLERATED WELL. NO S/S OF RESPIRATORY DISTRESS OR DISCOMFORT NOTED AT THIS TIME. WILL CONTINUE TO MONITOR.
[2019-01-13] MEDS ORDERED: BISACODYL 5 MG TABEC PO SCH (22:00)
[2019-01-14] VITALS: BP 139/46
--- NOTE | 2019-01-14 | NUR ---
VITAL SIGNS TAKEN AND TOLERATED WELL. NO S/S OF RESPIRATORY DISTRESS OR DISCOMFORT NOTED AT THIS TIME. WILL CONTINUE TO MONITOR.
--- NOTE | 2019-01-14 02:00 | NUR ---
PT SLEEPING IN BED. NO S/S OF RESPIRATORY DISTRESS OR DISCOMFORT NOTED AT THIS TIME. WILL CONTINUE TO MONITOR.
[2019-01-14 04:00] VITALS: BP 153/31
--- NOTE | 2019-01-14 04:00 | NUR ---
VITAL SIGNS TAKEN AND TOLERATED WELL. NO S/S OF RESPIRATORY DISTRESS OR DISCOMFORT NOTED AT THIS TIME. WILL CONTINUE TO MONITOR.
[2019-01-14] MEDS: NACL 0.9% 1,000 ML IV SCH ×2 (04:16→21:50)
[2019-01-14] MEDS: PANTOPRAZOLE 40 MG TABEC PO SCH (06:06)
--- NOTE | 2019-01-14 06:06 | NUR ---
SCHEDULED MEDICATION PROTONIX GIVEN AND TOLERATED WELL. NO S/S OF RESPIRATORY DISTRESS OR DISCOMFORT NOTED AT THIS TIME. WILL CONTINUE TO MONITOR.
--- NOTE | 2019-01-14 07:24 | NUR ---
RECEIVED REPORT FROM LOCOMOTIVE INSPECTOR NURSE RUPAL AT BEDSIDE. PT RESTING IN BED WITH FAMILY AT BEDSIDE. PT AOX3-FORGETFUL, SPEAKS LITHUANIAN, ON ROOM AIR WITH RIGHT HAND #22G RUNNING NS @60ML/HR. NO S/S OF RESPIRATORY DISTRESS OR DISCOMFORT NOTED AT THIS TIME. BED IN LOWEST POSITION, BED BREAKS ON, BOTH SIDE RAILS UP AND FALL PRECAUTIONS IN PLACE. BEDSIDE TABLE AND CALL LIGHT ARE WITHIN REACH. WILL CONTINUE TO MONITOR.
--- NOTE | 2019-01-14 07:24 | NUR ---
ENDORSED PT CARE TO DAY SHIFT NURSE WOLF FOR CONTINUITY OF CARE.
[2019-01-14 08:00] VITALS: BP 125/56
[2019-01-14 08:00] LABS: BASOPHILS % (AUTO) 0.4 % (0.0-2.0); EOSINOPHILS # (AUTO) 0.2 K/uL (0-0.4); EOSINOPHILS % (AUTO) 3.2 % (0.0-4.0); HEMATOCRIT 31.3 % (36-48); HEMOGLOBIN 10.9 g/dL (12.0-16.0); LYMPHOCYTES # (AUTO) 1.2 K/uL (2.5-16.5); LYMPHOCYTES % (AUTO) 24.9 % (20.5-51.1); MEAN CORPUSCULAR HEMOGLOBIN 35 pg (27-31); MEAN CORPUSCULAR HGB CONC 35 g/dL (33-37); MEAN CORPUSCULAR VOLUME 101.1 fL (80-94); MONOCYTES # (AUTO) 0.4 K/uL (0.8-1.0); MONOCYTES % (AUTO) 8.3 % (1.7-9.3); NEUTROPHILS # (AUTO) 3.1 K/uL (1.8-7.7); NEUTROPHILS % (AUTO) 63.2 % (42.2-75.2); PLATELET COUNT (AUTO) 119 K/uL (140-450); RED BLOOD CELL COUNT(AUTO) 3.09 MIL/uL (4.20-5.40); WHITE BLOOD COUNT (AUTO) 4.9 K/uL (4.8-10.8)
[2019-01-14 08:06] LABS: ANION GAP 12.1 (8-16); CARBON DIOXIDE 25.9 mmol/L (21-32); CHLORIDE 109 mmol/L (98-107); GLUCOSE 102 mg/dL (74-106); SODIUM SERUM 143 mmol/L (136-145); UREA NITROGEN, BLOOD 15 mg/dL (7-18)
[2019-01-14 08:09] LABS: MAGNESIUM 2.1 mg/dL (1.8-2.4); PHOSPHORUS 2.9 mg/dL (2.5-4.9)
--- NOTE | 2019-01-14 08:37 | NUR ---
PATIENT HAS BEEN SCREENED AND CATEGORIZED HIGH NUTRITION RISK. PATIENT WILL BE SEEN WITHIN 1-2 DAYS OF ADMISSION. 01/14/[address]
[2019-01-14] MEDS ORDERED: CALCIUM CARB/VIT-D 500 MG/200 IU 1 TAB PO SCH (09:19)
[2019-01-14] MEDS: SERTRALINE 50 MG TAB PO SCH (09:57)
[2019-01-14] MEDS: DONEPEZIL 10 MG TAB PO SCH (09:57)
[2019-01-14] MEDS: MEMANTINE 10 MG TAB PO SCH ×2 (09:57→19:53)
--- NOTE | 2019-01-14 09:59 | NUR ---
ADMINISTERED MORNING MEDS OT PT. PT TOLERATED THEM WELL. ALL OTHER NEEDS CURRENTLY MET. PT BED IN LOW POSITION, CALL LIGHT WITHIN REACH. WILL CONTINUE TO ROUND FREQUENTLY ON PT.
--- NOTE | 2019-01-14 10:57 | NUR ---
S.T. BEDSIDE SWALLOW EVAL COMPLETED See report for details. Pt presents with adequate oropharyngeal swallow function. No overt s/s aspiration observed. Pt able to self-feed w/o difficulty. Recommend: 1) Advance to mechanical soft texture diet, thin liquids. 2) P.O. meds whole okay. 3) Allow family to bring food from home, as pt is accustomed to eating Yi foods. No further tx indicated at this time. DC to [facility]. Time [id number]
--- NOTE | 2019-01-14 11:40 | NUR ---
PT LAYING IN BED SLEEPING. NO SIGNS OF DISTRESS OR PAIN AT THIS TIME. WILL CONTINUE TO ROUND FREQUENTLY ON PT. BED IN LOW POSITION, CALL LIGHT WITHIN REACH
[2019-01-14 12:00] VITALS: BP 121/52
--- NOTE | 2019-01-14 13:10 | NUR ---
RECEIVED CALL FROM CHANDAN DEVOPS DEVELOPER. SHE ASKED TO HAVE FAMILY CALL HER BACK AT . WILL INFORM FAMILY WHEN THEY ARRIVE.
--- NOTE | 2019-01-14 13:19 | NUR ---
FAMILY FOR PT ARRIVED AND I INFORMED THEM TO CALL CHANDAN UNINDENTURED APPRENTICE.
--- NOTE | 2019-01-14 13:28 | NUR ---
Associate Chemist Note: I spoke with patient's grandson Sumit. He stated his mother Trinity Iglesias is patient's health care decision maker and she would like patient to return home upon discharge, no [facility] facility placement. He reported prior to hospital admission patient was receiving home health services from [facility] and Mi would like to patient to continue to receive services from [facility]. Patient has a walker at home and her family assist her with ADLs. I informed Dr.Nguyen Petersen would like patient to return home upon discharge, does not want patient to go to ch[facility] facility and receives services from [facility].
--- NOTE | 2019-01-14 13:37 | NUR ---
PT RESTING IN BED WITH FAMILY AT BEDSIDE. ALL PT NEEDS ARE MET. NO SIGNS OF PAIN OR DISTRESS AT THIS TIME. WILL CONTINUE TO ROUND FREQUENTLY ON PT.
--- NOTE | 2019-01-14 14:27 | NUR ---
01/14/19 RD INITIAL ASSESSMENT COMPLETED PLEASE REFER TO NUTRITION ASSESSMENT UNDER CARE ACTIVITY FOR ESTIMATED NUTRITIONAL NEEDS. 1. CONTINUE CARDIAC SOFT DIET TOLERATED 2. INCLUDE HEALTH SHAKE BID 3. [facility] WILL PROVIDE FRESH FRUIT/VEGETABLES ON MEAL TRAYS 4. RD TO FOLLOW-UP 2-3 DAYS, HIGH RISK MANAS MARI RD
--- NOTE | 2019-01-14 15:47 | NUR ---
PT RESTING IN BED EATING WITH FAMILY AT BEDSIDE. FAMILY BROUGHT PT FOOD WHICH SHE IS TOLERATING WELL. ALL NEEDS CURRENTLY MET. WILL CONTINUE TO ROUND FREQUENTLY ON PT. BED IN LOW POSITION, CALL LIGHT WITHIN REACH.
[2019-01-14 16:00] VITALS: BP 152/48
--- NOTE | 2019-01-14 17:45 | NUR ---
PT RESTING IN BED. SHE IS REFUSING DINNER TRAY BECAUSE FAMILY WILL BRING HER FOOD. ALL OTHER NEEDS CURRENTLY MET. WILL CONTINUE TO ROUND FREQUENTLY ON PT. BED IN LOW POSITION, CALL LIGHT WITHIN REACH.
--- NOTE | 2019-01-14 19:16 | NUR ---
ENDORSED PT TO [employer]INO BEVERAGE SERVER FOR CONTINUITY OF CARE. PT IN STABLE CONDITION AT THIS TIME.
--- NOTE | 2019-01-14 19:17 | NUR ---
RECEIVED REPORT FROM DAY SHIFT NURSE ANALY-RN AT BEDSIDE. PT RESTING IN BED WITH FAMILY AT BEDSIDE. PT [id number], SPEAKS SLOVENIAN, ON ROOM AIR WITH RIGHT HAND #22G RUNNING NS @60ML/HR. DISCUSSED PLAN OF CARE AND PT VERBALIZED UNDERSTANDING. NO S/S OF RESPIRATORY DISTRESS OR DISCOMFORT NOTED AT THIS TIME. BED IN LOWEST POSITION, BED BREAKS ON, BOTH SIDE RAILS UP AND FALL PRECAUTIONS IN PLACE. BEDSIDE TABLE AND CALL LIGHT ARE WITHIN REACH. WILL CONTINUE TO MONITOR.
[2019-01-14] MEDS: MELATONIN 3 MG TAB PO PRN (19:54)
[2019-01-14 20:00] VITALS: BP 148/41
--- NOTE | 2019-01-14 20:00 | NUR ---
VITAL SIGNS TAKEN AND TOLERATED WELL. SCHEDULED MEDICATION NAMENDA GIVEN AND TOLERATED WELL. PT REQUESTED MELATONIN FOR SLEEPLESSNESS AND WAS GIVEN. PT TOLERATED WELL. NO S/S OF RESPIRATORY DISTRESS OR DISCOMFORT NOTED AT THIS TIME. WILL CONTINUE TO MONITOR.
--- NOTE | 2019-01-14 20:01 | NUR ---
HEPARIN NOT GIVEN DUE TO LOW PLATELETS 119- DR. ROSIE LANDAVERDE AWARE.
--- NOTE | 2019-01-14 22:00 | NUR ---
PT CONTINUES TO SLEEP IN BED. NO S/S OF RESPIRATORY DISTRESS OR DISCOMFORT NOTED AT THIS TIME. WILL CONTINUE TO MONITOR.
[2019-01-15] VITALS: BP 138/34
--- NOTE | 2019-01-15 | NUR ---
VITAL SIGNS TAKEN AND TOLERATED WELL. NO S/S OF RESPIRATORY DISTRESS OR DISCOMFORT NOTED AT THIS TIME. WILL CONTINUE TO MONITOR.
[2019-01-15] MEDS ORDERED: guaiFENesin DM 200/20 MG-10 ML 10 ML UDC PO PRN (01:30)
--- NOTE | 2019-01-15 01:54 | NUR ---
PT C/O COUGH AND UNABLE TO SLEEP. SPOKE TO DR. ROSIE LANDAVERDE AND ORDERED ROBITUSSIN AND TRAZODONE. AWARE MELETONIN WAS GIVEN BEFORE 1999. PT TOLERATED WELL. NO S/S OF RESPIRATORY DISTRESS OR DISCOMFORT NOTED AT THIS TIME. WILL CONTINUE TO MONITOR.
[2019-01-15] MEDS ORDERED: traZODone 50 MG TAB PO SCH (02:00)
[2019-01-15 04:00] VITALS: BP 129/40
--- NOTE | 2019-01-15 04:00 | NUR ---
VITAL SIGNS TAKEN AND TOLERATED WELL. NO S/S OF RESPIRATORY DISTRESS OR DISCOMFORT NOTED AT THIS TIME. WILL CONTINUE TO MONITOR.
[2019-01-15] MEDS: PANTOPRAZOLE 40 MG TABEC PO SCH (06:06)
--- NOTE | 2019-01-15 06:06 | NUR ---
SCHEDULED MEDICATION GIVEN AND TOLERATED WELL. NO S/S OF RESPIRATORY DISTRESS OR DISCOMFORT NOTED AT THIS TIME. WILL CONTINUE TO MONITOR.
[2019-01-15 06:13] LABS: FOLIC ACID 14.7 ng/mL (>3.0)
--- NOTE | 2019-01-15 06:30 | NUR ---
PT REFUSED BLOOD DRAW.
--- NOTE | 2019-01-15 07:14 | NUR ---
ENDORSED PT CARE TO DAY SHIFT NURSE VALERIA-RN FOR CONTINUITY OF CARE.
--- NOTE | 2019-01-15 07:15 | NUR ---
REPORT RECEIVED FROM BEEF CATTLE SPECIALIST NURSE, PT SLEEPING QUIETLY, AROUSES EASILY TO VOICE, SMILING, RESP EVEN UNLABORED ON RA, SKIN WARM DRY COLOR WNL, REVIEWED POC, PT APPEARS IN NO ACUTE DISTRESS, ALL SAFETY MEASURES IN PLACE, WILL CONTINUE TO MONITOR.
--- NOTE | 2019-01-15 07:45 | NUR ---
PT ASSISTED TO BATHROOM, SLOW STEADY GAIT, PT ASSISTED BACK TO BED, PT NOW SITTING UP TO EAT BREAKFAST.
[2019-01-15 08:00] VITALS: BP 140/45
[2019-01-15] MEDS ORDERED: MELA3TAB PO (08:50)
[2019-01-15] MEDS ORDERED: AMLO5TAB6 PO (08:50)
[2019-01-15] MEDS ORDERED: ASPIRIN 81 MG TAB.CHEW PO SCH (09:00)
[2019-01-15] MEDS ORDERED: LISINOPRIL 10 MG TAB PO SCH (09:00)
[2019-01-15] MEDS ORDERED: CALCIUM CARB/VIT-D 500 MG/200 IU 1 TAB PO SCH (09:00)
[2019-01-15] MEDS: SERTRALINE 50 MG TAB PO SCH (09:19)
[2019-01-15] MEDS: MEMANTINE 10 MG TAB PO SCH (09:19)
[2019-01-15] MEDS: DONEPEZIL 10 MG TAB PO SCH (09:22)
--- NOTE | 2019-01-15 10:30 | NUR ---
called [facility] @[phone] and spoke with Marleen, informing her of patient Kelsie Thibodeaux that will be discharge today and will resume HH services per Dr Mcnulty. Medical information faxed to [phone].
--- NOTE | 2019-01-15 10:45 | NUR ---
PT ASSISTED TO BATHROOM, SLOW STEADY GAIT, PT ASSISTED BACK TO BED
[2019-01-15] MEDS ORDERED: DONE10TA10 PO (11:47)
[2019-01-15] MEDS ORDERED: ALBU0.0912 IH (12:12)
--- NOTE | 2019-01-15 12:40 | NUR ---
PT'S DAUGHTER AND GRANDSON AT BEDSIDE TO TAKE PT HOME, DISCHARGE INSTRUCTIONS AND RX INFORMATION GIVEN AND EXPLAINED TO PT AND PT'S DAUGHTER, THEY VERBALIZED FULL UNDERSTANDING, IV DC'D, CATH TIP INTACT, BLEEDING CONTROLLED, PT ASSISTED TO WHEELCHAIR, [facility] DC HOME NOW WITH FAMILY, HOME HEALTH PT TO RESUME FROM PREVIOUS ORDER.
== END 2019-01-15 12:45 | disposition home health service (06) | DRG 73 ==
LOC: MED 12:27 → MTU 14:10 → MMU 01-13 18:39
PROVIDERS: ADMIT General Practice; ATTEND General Practice
DX: G90.8 Other disorders of autonomic nervous system (principal); G93.41 Metabolic encephalopathy; I21.A1 Myocardial infarction type 2; D69.6 Thrombocytopenia, unspecified; I10 Essential (primary) hypertension; G30.9 Alzheimer's disease, unspecified; F02.80 Dementia in other diseases classified elsewhere, unspecified severity, without behavioral disturbance, psychotic disturbance, mood disturbance, and anxiety; G47.00 Insomnia, unspecified; F32.9 Major depressive disorder, single episode, unspecified; R07.89 Other chest pain; K21.9 Gastro-esophageal reflux disease without esophagitis; D50.9 Iron deficiency anemia, unspecified; Z87.81 Personal history of (healed) traumatic fracture
CPT/HCPCS: 36415; 70450; 71045; 71100; 80048; 80053; 81003; 82140; 82150; 82550; 82607; 82728; 82746; 83036; 83540; 83690; 83735; 83880; 84100; 84436; 84443; 84484; 85025; 85045; 85610; 85730; 87081; 92610; 93005; 93880; 96374; 97110; 97116; 97530; 99285; J2405; J7030; Q0092